=== PATIENT | female | born 1990 | race Caucasian/White ===

== ENCOUNTER 2021-08-31 08:05 | Emergency (ER) | payer OTHER, SELFPAY ==
[2021-08-31 08:13] VITALS: BP 137/75; PULSE 91; RESP 16; TEMP 37; O2SAT 100
[2021-08-31 08:19] VITALS: BP 137/75; PULSE 91; RESP 16; TEMP 37; O2SAT 100
--- NOTE | 2021-08-31 08:20 | ED.URI ---
HPI - URI/Sore Throat General Chief Complaint: Upper Respiratory Infection Stated Complaint: sinus infection Time Seen by Provider: 08/31/21 08:10 Source: patient and RN notes reviewed History of Present Illness HPI Narrative: Patient is a 31-year-old female who presents the urgent care with complaints of cough, rhinorrhea, sinus congestion. Patient states that she does have normal seasonal allergies that typically improve within 1 week. Patient states that the cough and increased symptoms started approximately 3 days ago. Patient denies of any recent fever, nausea, vomiting, abdominal pain. Patient states that she was using cough drops. Denies of any other use of [id number] medication. Denies of any known exposure to Covid, strep or influenza. Patient states that she has not vaccinated but is not concerned about Covid . No other acute complaints. No acute distress noted. Patient read the plan of care. Some parts of this dictation were generated by voice recognition software and may contain typographical and/or grammatical inaccuracies. Related Data Allergies Allergy/AdvReac Type Severity Reaction Status Date / Time Sulfa (Sulfonamide Allergy as a child Verified 08/31/21 08:19 Antibiotics) Review of Systems Review of Systems: CONSTITUTIONAL: Denies fever, chills, or sweats. EYES: Denies visual changes, redness, or discharge. ENT: Reports of mild sinus congestion, postnasal drainage, rhinorrhea CARDIOVASCULAR: Denies chest pain, palpitations, or edema. RESPIRATORY: Reports of cough without dyspnea GASTROINTESTINAL: Denies abdominal pain, nausea, vomiting, or diarrhea. GENITOURINARY: Denies dysuria or hematuria. SKIN: Denies rash or itching. MUSCULOSKELETAL: Denies back pain, joint pain, or myalgia. NEUROLOGIC: Denies headache, numbness, or weakness. All other systems reviewed are negative, except as documented in HPI. PMFSH Comments At the time of my signature, I reviewed and agree with the nursing past medical, surgical, social, and family history. There is no relevant family history pertinent to the patient complaint. Exam Narrative: GENERAL: This is a well-nourished, well-developed patient, in no apparent distress. HEAD: normocephalic, atraumatic. EYES: PERRL. Sclera clear/white. Vision is grossly intact. EARS: External ears normal, auditory canals clear and without drainage, TMs normal without perforation. Hearing grossly intact. NOSE: External nose normal with no obvious nasal discharge, nares without redness, clear rhinorrhea. THROAT: Mucous membranes moist, posterior pharynx clear. Moderate postnasal drainage NECK: Neck supple CARDIOVASCULAR: Regular rate and rhythm without murmurs, gallops, or rubs. RESPIRATORY: Slight inspiratory wheeze throughout without course or crackles SKIN: warm, intact with no suspicious lesions or rash, good texture and turgor. NEURO: awake, alert, and oriented to person, place and time. There were no obvious focal neurologic abnormalities. EXTREMITIES: No clubbing, cyanosis, or edema. Course Vital Signs Vital signs: Vital Signs Temperature 98.6 F 08/31/21 08:13 Pulse Rate 91 08/31/21 08:13 Respiratory Rate 16 08/31/21 08:13 Blood Pressure 137/75 08/31/21 08:13 Pulse Oximetry 100 08/31/21 08:13 Temperature 98.6 F 08/31/21 08:19 Pulse Rate 91 08/31/21 08:19 Respiratory Rate 16 08/31/21 08:19 Blood Pressure 137/75 08/31/21 08:19 Pulse Oximetry 100 08/31/21 08:19 Reviewed MDM - URI/Sore Throat MDM Narrative Medical decision making narrative: Advised the patient to use Benadryl prior to bedtime in conjunction with Flonase nasal spray. Use a humidifier at night. Do not sleep with a fan on or the windows open. Complete the steroid regimen as prescribed. Make sure to eat and drink with the medication. Increase your water intake. If you develop any increase in symptoms associated with fever, difficulty breathing, or body aches?follow-up i
== END 2021-08-31 08:26 | disposition home or self-care (01) ==
PROVIDERS: Emergency Provider Nurse Practitioner Family
DX: J40 Bronchitis, not specified as acute or chronic (principal)
CPT/HCPCS: 99213; G0463

== ENCOUNTER 2021-12-26 11:30 | Emergency (ER) | payer OTHER, SELFPAY ==
--- NOTE | ~2021-12-26 | XR_ITS ---
EXAMINATION: XR chest 2V 12/26/2021 12:40 INDICATION: Productive cough PROCEDURE: 2 view chest COMPARISON: No prior studies for comparison. FINDINGS: The lungs are clear. The cardiomediastinal silhouette is within normal limits. There are no pleural effusions. There is no pneumothorax suspected. IMPRESSION: 1: NO ACUTE CARDIOPULMONARY DISEASE. Reviewed, dictated and finalized at location A.
[2021-12-26 11:40] VITALS: BP 116/80; PULSE 84; RESP 20; TEMP 37.1; O2SAT 100
--- NOTE | 2021-12-26 11:50 | ED.URI ---
HPI - URI/Sore Throat General Chief Complaint: Upper Respiratory Infection Stated Complaint: cough and congestion fever Time Seen by Provider: 12/26/21 11:32 Source: patient and RN notes reviewed History of Present Illness HPI Narrative: Patient is a 31-year-old female who presents the urgent care with complaints of a cough, subjective fever and chest congestion. Patient states symptoms started approximately a week and a half ago and she now feels like she is wheezing at night when she lays down. Patient reports of chills and sweats. She has been taking ibuprofen and cold and flu medication [id number]. Denies of any nausea or vomiting. Denies of any ill contacts. No other acute complaints. No acute distress noted. Patient aware of the plan of care. Some parts of this dictation were generated by voice recognition software and may contain typographical and/or grammatical inaccuracies. Related Data Allergies Allergy/AdvReac Type Severity Reaction Status Date / Time Sulfa (Sulfonamide Allergy as a child Verified 12/26/21 11:44 Antibiotics) Review of Systems Review of Systems: CONSTITUTIONAL: Reports of subjective fever EYES: Denies visual changes, redness, or discharge. ENT: Denies rhinorrhea, congestion, sore throat, or otalgia. CARDIOVASCULAR: Denies chest pain, palpitations, or edema. RESPIRATORY: Reports of cough, chest congestion and wheezing GASTROINTESTINAL: Denies abdominal pain, nausea, vomiting, or diarrhea. GENITOURINARY: Denies dysuria or hematuria. SKIN: Denies rash or itching. MUSCULOSKELETAL: Denies back pain, joint pain, or myalgia. NEUROLOGIC: Denies headache, numbness, or weakness. All other systems reviewed are negative, except as documented in HPI. PMFSH Comments At the time of my signature, I reviewed and agree with the nursing past medical, surgical, social, and family history. There is no relevant family history pertinent to the patient complaint. Exam Narrative: GENERAL: This is a well-nourished, well-developed patient, in no apparent distress. HEAD: normocephalic, atraumatic. EYES: PERRL. Sclera clear/white. Vision is grossly intact. EARS: External ears normal, auditory canals clear and without drainage, TMs normal without perforation. Hearing grossly intact. NOSE: External nose normal with no obvious nasal discharge, nares without redness, no rhinorrhea. THROAT: Mucous membranes moist, posterior pharynx clear. Mild postnasal drainage NECK: Neck supple CARDIOVASCULAR: Regular rate and rhythm without murmurs, gallops, or rubs. RESPIRATORY: Expiratory wheezes to right upper and lower lobes with slight crackles to right lower SKIN: warm, intact with no suspicious lesions or rash, good texture and turgor. NEURO: awake, alert, and oriented to person, place and time. There were no obvious focal neurologic abnormalities. EXTREMITIES: No clubbing, cyanosis, or edema. Course Course Level of Care: Express Care Visit Vital Signs Vital signs: Vital Signs Temperature 98.7 F 12/26/21 11:40 Pulse Rate 84 12/26/21 11:40 Respiratory Rate 20 12/26/21 11:40 Blood Pressure 116/80 12/26/21 11:40 Pulse Oximetry 100 12/26/21 11:40 Temperature 98.7 F 12/26/21 11:40 Pulse Rate 84 12/26/21 11:40 Respiratory Rate 20 12/26/21 11:40 Blood Pressure 116/80 12/26/21 11:40 Pulse Oximetry 100 12/26/21 11:40 Reviewed MDM - URI/Sore Throat MDM Narrative Medical decision making narrative: Reviewed x-ray results with the patient. She is aware that chest x-ray was negative for any acute pulmonary disease or pneumonia. Advised patient to complete the steroid regimen as prescribed. Use the inhaler as needed for wheezes or coughing fits. Treat upper respiratory symptoms with Claritin/Zyrtec as needed. Use Flonase nasal spray for postnasal drainage and sore throat relief. If you develop any increase in symptoms associated with chest pain or severe shortness of breath?go to the [facility]
== END 2021-12-26 12:58 | disposition home or self-care (01) ==
PROVIDERS: Emergency Provider Nurse Practitioner Family
DX: J40 Bronchitis, not specified as acute or chronic (principal)
CPT/HCPCS: 71046; 99213; G0463